=== PATIENT | male | born 1955 | race Caucasian/White ===

== ENCOUNTER → 2020-10-05 | Outpatient (CLI) | payer MEDICARE ==
[2020-10-12 19:06] LABS: C-PEPTIDE 2.5 ng/mL (1.1-4.4)
== END ==
LOC: M PLALAB 10:05
PROVIDERS: ATTEND Internal Medicine Endocrinology, Diabetes & Metabolism
DX: E11.65 Type 2 diabetes mellitus with hyperglycemia (principal)

== ENCOUNTER → 2023-04-03 | Outpatient (CLI) | payer MEDICARE | LOC: M SOG 09:09 | PROVIDERS: ATTEND Orthopaedic Surgery | DX: M54.50 Low back pain, unspecified (principal); M47.816 Spondylosis without myelopathy or radiculopathy, lumbar region; M47.817 Spondylosis without myelopathy or radiculopathy, lumbosacral region; M46.06 Spinal enthesopathy, lumbar region; M53.85 Other specified dorsopathies, thoracolumbar region ==